=== PATIENT | female | born 1950 | race Hispanic/Latino ===

== ENCOUNTER → 2017-10-23 | Outpatient (CLI) | payer BC ==
[~2017-10-23] MED LIST: ASPIR 8181 MG PO; AZELASTINE137 MCG/0.; BENICAR HCT 401 EAC1 PO; CLONIDINE HCL0.1 MG PO; GADOBENATE DIMEGLUMINE 1 ML IV ONE; GLIPIZIDE XL2.5 MG PO; GLIPIZIDE5 MG PO; HYDROCODON-ACE1 EA11 PO; LAMICTAL100 MG PO; LOVAZA1 GM PO; METFORMIN HCL500 MG PO; NASCOBAL; NIFEDIPINE ER30 M1 PO; SIMVASTATIN40 MG PO; SYNTHROID88 MCG PO; VITAMIN D1000 UNI1 PO; ZEGERID 40 MG1 EACH PO; ZEGERID OTC 201 EACH; ZYRTEC10 MG PO; nascobal; trulicity SC
[2017-10-23 15:13] LABS: BLOOD UREA NITROGEN 12 mg/dL (7-26); BUN/CREATININE RATIO 16 (6-25); CREATININE, SERUM 0.75 mg/dL (0.57-1.11); EST GLOMERULAR FILTRATION RATE > 60 ML/MIN (60-)
--- NOTE | 2017-10-24 07:07 | Diagnostic Imaging Report ---
Brain MRI without with IV contrast History: Tinnitus in both ears, sensorineural hearing loss in the right ear with unrestricted hearing in the left ear Comparison studies: None Technique: Sagittal axial T2, axial DWI, precontrast axial T1 FLAIR, axial T2*GRE and postcontrast axial T2 FLAIR and postcontrast axial and coronal T1 FS to the whole brain and 3-D T2 with axial, coronal and sagittal reformats, axial precontrast T1 flair and post contrast axial coronal T1 FS to the IACs. Intravenous contrast: 20 cc of MultiHance Findings: The thin partitioned T2 sequence through the IACs is somewhat limited by artifact with low [id number]. Scalp: No abnormal signal. No masses. Bone marrow: Normal in signal intensity. Brain sulci: Appropriate for age. Ventricles: Normal in size . No hydrocephalus. Parenchyma: No mass, hemorrhage or acute ischemia. A few scattered T2 FLAIR hyperintense foci in the supratentorial white matter are nonspecific but most compatible with chronic microvascular ischemic changes. IACs: Grossly normal nerves VII and VIII. Labyrinths: Grossly normal formation bilaterally. The superior margin of the right superior subinsular canal is outside the field of view on the thin partition T2 sequence but appears grossly normal on the sagittal T2 sequence through the whole brain. Mastoids: Nonspecific reactive T2 hyperintense changes in the right middle ear and mastoids. Suprasellar region: No abnormalities. Craniocervical junction: Patent foramen magnum. No Chiari one malformation. Vessels: Normal flow-voids in the arteries and sinuses. IMPRESSION: 1. Nonspecific reactive changes with effusion in the right middle ear and mastoids. 2. No gross IAC or labyrinthine abnormalities. 3. Mild supratentorial chronic microvascular ischemic changes. Signed by: Dr. Yeyo Hogue M.D. on 10/24/2017 7:04 AM
== END ==
LOC: MRI 14:03
PROVIDERS: ATTEND Otolaryngology
DX: H93.13 Tinnitus, bilateral (principal); H90.A21 Sensorineural hearing loss, unilateral, right ear, with restricted hearing on the contralateral side
CPT/HCPCS: 36415; 70553; 82565; 84520